=== PATIENT | female | born 1965 | race Caucasian/White ===

== ENCOUNTER → 2017-01-19 | Outpatient (CLI) | payer MEDICARE, OTHER ==
[2017-01-19 07:52] LABS: BUN/CREATININE RATIO 31 (0-10)
[2017-01-19 07:54] LABS: HEMOGLOBIN 13.1 gm/dl (12.3-15.3); RED BLOOD COUNT 4.74 M/UL (4.00-5.10); WHITE BLOOD COUNT 6.3 K/UL (4.5-11.0)
== END ==
LOC: LAB 06:43
PROVIDERS: Physician Assistant
DX: I10 Essential (primary) hypertension (principal); E55.9 Vitamin D deficiency, unspecified; E53.8 Deficiency of other specified B group vitamins; K21.9 Gastro-esophageal reflux disease without esophagitis
CPT/HCPCS: 36415; 80048; 80061; 80076; 82607; 83735; 84443; 85025

== ENCOUNTER → 2017-01-29 | Outpatient (CLI) | payer MEDICARE, OTHER | LOC: KOH-I 08:56 | DX: I65.29 Occlusion and stenosis of unspecified carotid artery (principal); I67.82 Cerebral ischemia; R47.9 Unspecified speech disturbances; R51 Headache; R20.0 Anesthesia of skin; H53.9 Unspecified visual disturbance; R93.0 Abnormal findings on diagnostic imaging of skull and head, not elsewhere classified | CPT/HCPCS: 70553; A9577 ==

== ENCOUNTER → 2021-01-13 | Day surgery (SDC) | payer MEDICARE, OTHER ==
[~2021-01-13] MED LIST: CLONAZEPAM1 MG PO; CRESTOR10 MG PO; CYCLOBENZAPRINE10 MG PO; DIAMOX 250 MG250 MG PO; DITROPAN 5 MG TA5 MG PO; EFFEXOR; Fioricet PO; HYDROCODON-ACE1 EAC6 PO; KEFLEX500 MG PO; MACROBID 100 M100 MG PO; NEURONTIN800 MG PO; NEXIUM40 MG PO; NIFEDIPINE ER30 M1 PO; REGLAN 10 MG TA10 MG PO
== END | disposition home or self-care (01) ==
LOC: OR 11:55
DX: R31.29 Other microscopic hematuria (principal); N32.81 Overactive bladder; R30.0 Dysuria; I10 Essential (primary) hypertension; K21.9 Gastro-esophageal reflux disease without esophagitis; E78.5 Hyperlipidemia, unspecified; J45.909 Unspecified asthma, uncomplicated; I25.10 Atherosclerotic heart disease of native coronary artery without angina pectoris; F32.9 Major depressive disorder, single episode, unspecified; F41.9 Anxiety disorder, unspecified; G47.33 Obstructive sleep apnea (adult) (pediatric); Z87.442 Personal history of urinary calculi; Z80.42 Family history of malignant neoplasm of prostate; Z86.73 Personal history of transient ischemic attack (TIA), and cerebral infarction without residual deficits; Z88.1 Allergy status to other antibiotic agents; Z88.0 Allergy status to penicillin; Z88.2 Allergy status to sulfonamides; Z88.5 Allergy status to narcotic agent; Z79.899 Other long term (current) drug therapy
CPT/HCPCS: C1769; C1894; C2617; J7040; J7120

== ENCOUNTER → 2022-06-15 | Outpatient (CLI) | payer MEDICARE, OTHER | LOC: RAD 07:50 | DX: K21.9 Gastro-esophageal reflux disease without esophagitis (principal) | CPT/HCPCS: 74246 ==